=== PATIENT | male | born 1950 | race Caucasian/White ===

== ENCOUNTER 2017-09-02 14:37 | Emergency (ER) | payer MEDICARE, OTHER ==
--- NOTE | 2017-09-02 14:53 | EDM.PDOC ---
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 He suffered a brief LOC and now arrives via EMS with a complaint primarily of R upper shoulder pain and dizziness. EMS noted mild HTN. PHx if only remarkable for allergy to hornet stings per patient. Dizziness only came after getting Dilaudid 1 mg IV per EMS. No nausea or vomiting. Onset: Today Onset Date: 09/02/17 Onset Time: 14:10 Duration: Minutes:, Improving Location: Reports: Head, Upper Extremity, Right (shoulder) Quality: Reports: Ache (shoulder) Severity: Mild Improves with: Reports: Rest Worsens with: Reports: Movement Context: Reports: Trauma Associated Symptoms: Reports: Other (dizzy). Denies: Fever/Chills, Headaches, Nausea/Vomiting, Rash, Shortness of Breath Treatments DRY ROASTER: Reports: Other (see below) (none) Right Shoulder Pain Score (Numeric/FACES): 4 - Related Data Allergies Allergy/AdvReac Type Severity Reaction Status Date / Time bee venom protein (honey bee) Allergy Cannot Verified 09/02/17 14:55 Remember Home Meds: Home Meds NK [No Known Home Meds] 09/02/17 [History] ED ROS GENERAL - Review of Systems Review Of Systems: See Below Constitutional: Reports: No Symptoms HEENT: Reports: Hearing Loss (seems mildly decreased compared to his normal. ) Respiratory: Reports: No Symptoms Cardiovascular: Reports: No Symptoms Endocrine: Reports: No Symptoms GI/Abdominal: Reports: No Symptoms : Reports: No Symptoms Musculoskeletal: Reports: Shoulder Pain, Joint Pain (R shoulder) Skin: Reports: No Symptoms Neurological: Reports: Dizziness (since Dilaudid was given IV), Syncope (LOC after fall for 1-2 min). Denies: Confusion, Headache, Seizure Psychiatric: Reports: No Symptoms ED EXAM, HEAD INJURY - Physical Exam Exam: See Below Exam Limited By: No Limitations General Appearance: Alert, WD/WN, No Apparent Distress Head: Atraumatic, Normocephalic Nexus Criteria: Painful Distraction Injuries (Hard cervical collar on on arrival.). No: Evidence of Intoxication Eyes: Bilateral Eye: EOMI, Normal Inspection, PERRL Ears: Normal External Exam, Normal Canal, Hearing Grossly Normal, Normal TMs Nose: Normal Inspection, Normal Mucousa, No Blood Throat/Mouth: Normal Inspection, Normal Lips, Normal Teeth, Normal Oropharynx, Normal Voice, No Airway Compromise Neck: Other (Hard cervical collar in place.) Respiratory: No Respiratory Distress, Lungs Clear, Normal Breath Sounds, No Accessory Muscle Use, Chest Non-Tender Cardiovascular: Regular Rate, Rhythm, No Edema GI/Abdominal Exam: Normal Bowel Sounds, Soft, Non-Tender, No Distention (Male) Exam: Normal Inspection Back Exam: Normal Inspection. No: CVA Tenderness (R), CVA Tenderness (L) Extremities: Normal Inspection, Normal Range of Motion, Non-Tender, No Pedal Edema Neurologic: auto locator II-XII nml As Tested, No Motor/Sensory Deficits, Alert, Normal Mood/Affect, Oriented x 3 Skin: Normal Color, Warm/Dry - Jose Raul Coma Score Best Eye Response ([place]): (4) Open Spontaneously Best Verbal Response ([place]): (5) Oriented Best Motor Response (Jose Raul): (6) Obeys Commands Course - Vital Signs Last Recorded V/S: Last Vital Signs Temp 36.6 C 09/02/17 14:48 Pulse 80 09/02/17 14:48 Resp 14 09/02/17 14:48 BP 164/93 H 09/02/17 14:48 Pulse Ox 94 L 09/02/17 14:48 - Orders/Labs/Meds Orders: Active Orders 24 hr Category Date Time Status Cervical Spine wo Cont [CT] Stat Exams 09/02/17 14:44 Taken Head wo Cont [CT] Stat Exams 09/02/17 14:43 Taken Shoulder wo Cont Rt [CT] Stat Exams 09/02/17 14:52 Taken - Radiology Interpretation Free Text/Narrative:: CT's of head, neck, and R shoulder all read by radiology as negative. CT Results Date: 09/02/17 CT Results Time: 15:50 Departure - Departure Time of Disposition: 15:56 Disposition: Home, Self-Care 01 Condition: Good Clinical Impression: Concussion with brief LOC Fall Qualifiers: Encounter type: initial encounter Qualified Code(s): W19.XXXA - Unspecified fall, initial encounter Contusion of shoulder, right Qualifiers: Encounter type: initial encounter Qualified Code(s): S40.011A - Contusion of right shoulder, initial encounter - Discharge Information Forms: ED Department Discharge - My Orders Last 24 Hours: My Active Orders 09/02/17 14:43 Head wo Cont [CT] Stat 09/02/17 14:44 Cervical Spine wo Cont [CT] Stat 09/02/17 14:52 Shoulder wo Cont Rt [CT] Stat - Assessment/Plan Last 24 Hours: My Active Orders 09/02/17 14:43 Head wo Cont [CT] Stat 09/02/17 14:44 Cervical Spine wo Cont [CT] Stat 09/02/17 14:52 Shoulder wo Cont Rt [CT] Stat
== END 2017-09-02 16:21 | disposition home or self-care (01) ==
LOC: JP.ED 14:37
DX: S06.0X1A Concussion with loss of consciousness of 30 minutes or less, initial encounter (principal); W10.9XXA Fall (on) (from) unspecified stairs and steps, initial encounter; Y93.9 Activity, unspecified; Y92.019 Unspecified place in single-family (private) house as the place of occurrence of the external cause; S40.011A Contusion of right shoulder, initial encounter; S30.0XXA Contusion of lower back and pelvis, initial encounter; R42 Dizziness and giddiness; Z91.030 Bee allergy status
CPT/HCPCS: 70450; 72125; 73200-RT; 99284-25

== ENCOUNTER 2021-11-15 07:03 | Day surgery (SDC) | payer MEDICARE ==
[2021-11-15] MEDS ORDERED: Dextrose 5%-Lactated Ringers 1,000 ML IV SCH (07:30)
[2021-11-15] MEDS ORDERED: fentaNYL 100 MCG/2 ML SDV ONE (07:53)
[2021-11-15] MEDS ORDERED: Midazolam 1 MG/ML 2 ML SDV ONE (07:53)
[2021-11-15] MEDS ORDERED: Propofol 200 MG/20 ML SDV ONE (07:53)
== END 2021-11-15 11:20 | disposition home or self-care (01) ==
LOC: JP.SDS 07:03
PROVIDERS: ATTEND Surgery
DX: R13.10 Dysphagia, unspecified (principal); J84.10 Pulmonary fibrosis, unspecified; N28.1 Cyst of kidney, acquired; R31.9 Hematuria, unspecified; K21.9 Gastro-esophageal reflux disease without esophagitis; K44.9 Diaphragmatic hernia without obstruction or gangrene; Z91.030 Bee allergy status; Z79.810 Long term (current) use of selective estrogen receptor modulators (SERMs); Z79.899 Other long term (current) drug therapy
CPT/HCPCS: 43239; 87081; 88305; J2250; J2704; J3010; J7121